=== PATIENT | male | born 1985 | race Hispanic/Latino ===

== ENCOUNTER 2018-02-28 00:49 | Inpatient (IN) | payer MEDICAID, OTHER ==
[2018-02-28 00:59] VITALS: O2SAT 97
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
[2018-02-28] MEDS ORDERED: Pneumococcal 23-Valent Vaccine IM ONE (05:20)
[2018-02-28] MEDS ORDERED: Aluminum Hydroxide/Magnesium Hydroxide Susp (30 mL) PO PRN (05:45)
--- NOTE | 2018-02-28 07:38 | PCM.BM ---
<Anayeli Hunt - Last Filed: 02/28/18 07:38> Treatment Plan Problems - Problems identified on initial assessmt Suicidal Ideation Date Initiated: 02/28/18 Time Initiated: 02:20 Assessment reference: NA Status: Active Opiates Abuse Date Initiated: 02/28/18 Time Initiated: 02:20 Assessment reference: NA Status: Active Treatment assets and liabiliti Patient Assests: ADL independent, physically healthy Patient Liabilities: substance abuse (Opiates, Benzo, Barbiturates) - Milieu Protocol Maintain good personal hygiene: daily Encourage regular showers, daily Remind patient to perform daily oral care, every shift Assist patient to perform ADL's Conduct patient checks and document Observation sheet: Q15 minutes Maintain personal safety: every shift Educate patient to report safety concerns to staff, every shift Monitor environment for contraband/sharps Medication safety: Monitor for expected outcome, potential side effects: every shift, Assess barriers to learning: every shift, Assess readiness for medication education: every shift <Jewels Hathaway - Last Filed: 03/01/18 13:18> - Diagnosis (1) Depression Status: Acute Interventions: 03/01/18 13:18 * Assess/adjust medications daily and /or as needed * See patient on an individual basis 7x/week to assess symptoms of depression * Monitor for side effects & effectiveness of medications * (2) Opioid use disorder, severe, dependence Status: Acute Interventions: 03/01/18 13:18 * Assess 7x/week regarding severity of withdrawal * Educate regarding risks, benefits, side effects and alternatives of medications * Use Motivational Interviewing for abstinence * Use CBT for relapse prevention * Medication management for withdrawal symptoms * Encourage medication assisted treatment * <Antonina Haque - Last Filed: 03/01/18 16:04> Family Contact Family involvement: Patient does not wish Family/SO involvement Family contact: Patient declines to allow family contact at present - Goals for Treatment Patient goals for treatment: "I want to go to a sober living program." Discharge/Continuing Care - Education Needs Education Needs: Patient Medication, Patient Diagnosis/Disease Process, Patient Coping Skills, Patient Placement options, Patient Community resources - Discharge Discharge Criteria: Free of Suicidal thoughts, Normal sleep pattern, Ability to care for self, No longer exhibiting s/s of withdrawal, Reduction of target symptoms Discharge to:: Other - Treatment Team Participation Discussed with Family/SO: No Was Patient/Family/SO present at Treatment Team Meeting: Yes
[2018-02-28] MEDS: Multiple Vitamins Tab PO SCH (09:05)
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
[2018-02-28] MEDS ORDERED: Divalproex 500 mg DR Tab PO SCH (10:00)
[2018-03-01] MEDS: Multiple Vitamins Tab PO SCH (09:55)
--- NOTE | 2018-03-01 13:20 | PCM.PYCHPN ---
Psychiatric Progress Note - Psychiatric Progress Note Patient seen today, length of contact: 16 min Patient Chief Complaint: I was feeling depressed .' Problems Identified/Issues Discussed: Patient seen and evaluated, chart reviewed and discussed with the nurse. Pt still reports depressed mood but reports some improvement in the feelings of hopelessness and helplessness. He is on methadone taper and reports withdrawal symptoms including cramps, back pain and sweating He also reports some improvement in sleep. However he remained isolated and withdrawn. He is taking medications and denies any side effects Symptoms are improving but he needs more time for stabilization. Supportive therapy and psychoeducation were given. Medication Change: Yes Medical Record Reviewed: Yes Mental Status Examination - Cognitive Function Orientation: Person, Place, Situation, Time Memory: Intact Attention: WNL Concentration: Poor Association: WNL Fund of Knowledge: Poor - Mood Mood: Anxious - Affect Affect: Constricted, Depressed - Speech Speech: Soft - Formal Thought Process Formal Thought Process: No Impairment - Suicidal Ideation Suicidal Ideation: No - Homicidal Ideation Homicidal Ideation: No Goal/Treatment Plan - Goal/Treatment Plan Need for Continued Stay: Severe depression anxiety, Severe functional impairment Progress Toward Problem(s) and Goals/Treatment Plan: Major depressive disorder recurrent moderate Opioid use severe severe Opioid withdrawal 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
[2018-03-02 06:55] VITALS: RESP 18; TEMP 97.7
[2018-03-02 09:56] VITALS: BP 117/73; PULSE 103
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
[2018-03-02] MEDS: Multiple Vitamins Tab PO SCH (10:16)
== END 2018-03-02 11:45 | disposition home or self-care (01) | DRG 430 ==
LOC: C.ER 00:49 → C.5E 01:20
PROVIDERS: ADMIT Psychiatry & Neurology Psychiatry; ATTEND Psychiatry & Neurology Psychiatry
DX: F33.1 Major depressive disorder, recurrent, moderate (principal); F11.23 Opioid dependence with withdrawal; F14.10 Cocaine abuse, uncomplicated; F13.239 Sedative, hypnotic or anxiolytic dependence with withdrawal, unspecified; Z59.0 Homelessness